=== PATIENT | female | born 1950 | race Caucasian/White ===

== ENCOUNTER 2017-03-13 09:33 | Day surgery (SDC) | payer OTHER ==
[2017-03-02 11:52] VITALS: BMI 41.5
[2017-03-13] MEDS: CYCLOPENTOLATE HCL 1% OPHTH SOLN 2 ML BOTTLE ONE ×5 (10:25→10:45)
[2017-03-13] MEDS: GENTAMICIN SULFATE 0.3% OPHTHALMIC (EYE DROPS) 5ML BOTTLE ONE ×5 (10:25→10:45)
[2017-03-13] MEDS: FLURBIPROFEN 0.03% OPHTH SOLN 2.5 ML BOTTLE ONE ×5 (10:25→10:45)
[2017-03-13] MEDS: PHENYLEPHRINE 2.5% OPHTH SOLN 15 ML BOTTLE ONE ×5 (10:25→10:45)
[2017-03-13] MEDS: TROPICAMIDE 1% OPHTH SOLN 15 ML BOTTLE ONE ×5 (10:25→10:45)
[2017-03-13] MEDS ORDERED: ACETAMINOPHEN 325 MG TABLET (FP) PO PRN (10:43)
[2017-03-13] MEDS ORDERED: MIDAZOLAM HCL 2 MG/2 ML SINGLE DOSE VIAL ONE (11:05)
[2017-03-13] MEDS ORDERED: PROPOFOL 20 ML ONE (11:29)
[2017-03-13] MEDS ORDERED: LIDOCAINE HCL/PF 2% SDV 5ML VIAL ONE (11:30)
[2017-03-13 13:01] VITALS: TEMP 97.6
[2017-03-13 13:17] VITALS: BP 149/77; PULSE 64
--- NOTE | 2017-03-13 15:43 | OP ---
DATE OF OPERATION: 03/13/2017 TITLE OF PROCEDURE: Planned extracapsular cataract extraction and phacoemulsification and insertion of posterior chamber lens implant of the right eye. Difficult cataract extraction due to positive vitreous pressure throughout the case. SURGEON: Juan Jansen MD MANAGER HUMAN RESOURCES SURGEON: Juan Jansen MD ANESTHESIA: Local standby. ANESTHESIOLOGIST: Nitish Frazier MD COMPLICATIONS: None. PREOPERATIVE DIAGNOSIS: Hypermature cataract, right eye. POSTOPERATIVE DIAGNOSIS: Hypermature cataract, right eye. FINDINGS AND PROCEDURE: After successful peribulbar anesthesia was given to the right eye in the operating room, the patient was prepped and draped in the usual manner to expose the right eye. A lid speculum was inserted, and the microscope brought into position over the eye. Tegaderm strips were also used. A superior fornix-based flap was then fashioned for 12 mm using Denia scissors and 0.12 forceps, and hemostasis achieved by wet field cautery. A limbal groove was fashioned for 3 mm, dissecting anterior into clear cornea. A 3-mm blade was used to enter the anterior chamber, and Viscoat. A 360-degree anterior capsulotomy was performed and leaflet removed from the eye. Phacoemulsification of the entire nucleus was then done for approximately 4 minutes' time. Due to the hypermature nature of it, it required more time. The cortex was then removed and irrigated and aspirated out without complication, leaving the entire posterior capsule and red reflex present. Provisc was injected into the posterior chamber to deepen the posterior capsule, and then, the implant was inspected carefully, found to be free of defects, debris, and flaws. It was then folded, placed in the Provisc-filled cartridge, and the cartridge placed in the injector and the implant injected into the eye, such that the inferior haptic was in the inferior capsular bag and the superior haptic was in the superior capsular bag and rotated into the horizontal position with a Sinskey hook. Provisc was aspirated out, replaced with Miochol, Miostat, and BSS. The wound was closed with single interrupted 2-0 Ethilon suture and tested for leakage. None was found. At this point, the implant was fixated in the capsular bag, centrally located, with a round pupil intact. Posterior capsule and red reflex present. The conjunctival-tenon flap was reapproximated, and then, the specimen and Tegaderm strips removed from the lids. The lids were closed and a patch and shield placed on the eye. The patient was then discharged from the operating room to the recovery area in good condition, having tolerated the procedure well. [place] [id number]
== END 2017-03-13 13:15 | disposition home or self-care (01) ==
LOC: FASU 09:33
PROVIDERS: ATTEND Ophthalmology
PROC: 08RJ3JZ Replacement of Right Lens with Synthetic Substitute, Percutaneous Approach (ICD-10-PCS; principal; 2017-03-13 11:44)
DX: H25.21 Age-related cataract, morgagnian type, right eye (principal); H43.391 Other vitreous opacities, right eye

== ENCOUNTER 2017-05-08 07:05 | Day surgery (SDC) | payer OTHER ==
[2017-05-01 19:08] VITALS: BMI 41.1
[2017-05-08] MEDS: PHENYLEPHRINE 2.5% OPHTH SOLN 15 ML BOTTLE ONE ×4 (07:15→08:00)
[2017-05-08] MEDS ORDERED: BETAXOLOL HCL 0.25% OPHTHALMIC 10 ML DROPSBTL ONE (07:16)
[2017-05-08] MEDS ORDERED: BUPIVACAINE HCL/PF 0.5% (5MG/ML) 10 ML VIAL ONE (07:16)
[2017-05-08] MEDS ORDERED: BACITRACIN/POLYMYXIN OPH OINT 3.5 GM TUBE ONE (07:16)
[2017-05-08] MEDS ORDERED: LIDOCAINE HCL/PF 2% SDV 5ML VIAL ONE (07:16)
[2017-05-08] MEDS ORDERED: TETRACAINE 0.5% OPHTH SOLN 2 ML BOTTLE ONE (07:16)
[2017-05-08] MEDS ORDERED: LIDOCAINE HCL 2% JELLY 10 ML CARTRIDGE ONE (07:17)
[2017-05-08] MEDS ORDERED: CARBACHOL 0.01% INTRA-OCULAR 1.5 ML VIAL ONE (07:17)
[2017-05-08] MEDS ORDERED: NEO/POLYMYX B SULF/DEXAMETH OPHTHALMIC 5ML BOTTLE ONE (07:17)
[2017-05-08] MEDS ORDERED: ACETYLCHOLINE 1:100 INTRA-OCUL 20 MG/2 ML KIT ONE (07:17)
[2017-05-08] MEDS: GENTAMICIN SULFATE 0.3% OPHTHALMIC (EYE DROPS) 5ML BOTTLE ONE ×4 (07:45→08:00)
[2017-05-08] MEDS: CYCLOPENTOLATE HCL 1% OPHTH SOLN 2 ML BOTTLE ONE ×4 (07:45→08:00)
[2017-05-08] MEDS: FLURBIPROFEN 0.03% OPHTH SOLN 2.5 ML BOTTLE ONE ×4 (07:45→08:00)
[2017-05-08] MEDS: TROPICAMIDE 1% OPHTH SOLN 15 ML BOTTLE ONE ×4 (07:45→08:00)
[2017-05-08] MEDS ORDERED: MIDAZOLAM HCL 2 MG/2 ML SINGLE DOSE VIAL ONE (08:13)
[2017-05-08] MEDS ORDERED: SUCCINYLCHOLINE CHLORIDE 200 MG/10 ML VIAL ONE (08:13)
[2017-05-08] MEDS ORDERED: PROPOFOL 20 ML ONE (08:13)
[2017-05-08] MEDS ORDERED: ACETAMINOPHEN 325 MG TABLET (FP) PO PRN (09:30)
[2017-05-08 09:46] VITALS: TEMP 97.7
[2017-05-08] MEDS ORDERED: ACETAMINOPHEN 325 MG TABLET (FP) ONE (09:57)
--- NOTE | 2017-05-08 10:10 | OP ---
DATE OF OPERATION: 05/08/2017 TITLE OF PROCEDURE: Planned extracapsular cataract extraction, phacoemulsification of a very hard, hypermature cataract in the left eye with posterior chamber lens implant. SURGEON: Juan Jansen MD COC[employer] BE[employer] ROASTER HELPER SURGEON: Miladys Mckeon MD ANESTHESIA: Local standby. MOUNTED POLICE OFFICER: Nomi Rosado MD COMPLICATIONS: None. PREOPERATIVE DIAGNOSIS: Mature cataract, left eye. POSTOPERATIVE DIAGNOSIS: Hypermature cataract, left eye. FINDINGS AT PROCEDURE: After successful peribulbar anesthesia was given in the left eye, the patient was prepped and draped in the usual manner to expose the left eye. A lid speculum was inserted after Tegaderm strips were placed on the lashes and the microscope brought into position over the eye. A superior fornix base flap was then fashioned with 12 mm using Denia scissors and 0.12 forceps and hemostasis achieved with electrocautery. Then, a limbal groove with 3 mm was fashioned with a crescent blade and dissecting anterior into clear cornea. Then, a 3-mm blade was used to enter the anterior chamber. Under Viscoat, a 360-degree anterior capsulotomy was performed. Leaflet removed from the eye, and phacoemulsification of the entire nucleus was done by manual technique in approximately 2-1/2 minutes' time. It was discovered that this nucleus was very 4+++ hard and required extra time in phacoemulsifying it completely without complications. This was followed by irrigation and aspiration of all cortical material, leaving the entire posterior capsule and a red reflex present. Then, Provisc was injected in the posterior chamber, to deepen the posterior capsule. Then, the implant was inspected carefully with the microscope, found to be free of defects, debris, and flaws. It was folded, placed in the Provisc-filled cartridge. The cartridge was placed in the injector, and then, the implant was injected into the eye such that the inferior haptic was in the inferior capsular bar and the superior haptic in the superior capsular bag and rotated in a horizontal position with the Sinskey hook. The Provisc was aspirated out, replaced with Miochol and Miostat and BSS and the wound was closed with one single 10-0 Ethilon suture superiorly, tested for leakage and none was found. Conjunctival continuous flap was reapproximated, and at this point, the implant was fixated in the capsular bag, centrally located with a round pupil, intact posterior capsule and red reflex present. As I mentioned, the Viscoat had been removed and so was the Provisc and replaced with Miochol and Miostat and BSS. The Tegaderm strips and the speculum were removed from the eye. Lids were closed and a patch and shield placed on the eye and the patient was then discharged from the operating room to the recovery area in good condition, having tolerated the procedure well. [place] [id number]
[2017-05-08 10:34] VITALS: BP 112/72; PULSE 62
== END 2017-05-08 10:44 | disposition home or self-care (01) ==
LOC: FASU 07:05
PROVIDERS: ATTEND Ophthalmology
PROC: 08RK3JZ Replacement of Left Lens with Synthetic Substitute, Percutaneous Approach (ICD-10-PCS; principal; 2017-05-08 08:34)
DX: H25.22 Age-related cataract, morgagnian type, left eye (principal)